=== PATIENT | male | born 1985 | race Caucasian/White ===

== ENCOUNTER 2022-03-12 16:16 | Emergency (ER) | payer BC | END 2022-03-12 17:06 | disposition home or self-care (01) | LOC: BURERS 16:16 | DX: U07.1 COVID-19 (principal) | CPT/HCPCS: 99283; U0003; U0005 ==

== ENCOUNTER 2022-03-23 12:49 | Emergency (ER) | payer BC | END 2022-03-23 13:30 | disposition home or self-care (01) | LOC: BURERS 12:49 | DX: Z20.822 Contact with and (suspected) exposure to COVID-19 (principal) | CPT/HCPCS: 99281 ==